=== PATIENT | female | born 1935 | race Caucasian/White ===

== ENCOUNTER → 2017-04-17 | Outpatient (CLI) | payer OTHER, BC ==
[~2017-04-17] VITALS: Ht 165.1 cm; Wt 77.1 kg
[~2017-04-17] MED LIST: AMITRIPTYLINE H10 M3 PO; AMLODIPINE-BEN1 EAC1 PO; ASPIRIN81 M2 PO; CALCIUM 500+D1 EAC2 PO; GLUCOSAMINE &1 EAC1 PO; LABETALOL HCL300 MG PO; LEVOTHYROXINE0.05 MG PO; LOTREL 2.5-101 EACH PO; MOBIC15 MG PO; MULTIVITAMINS PO; POTASSIUM20 PO; SYNTHROID50 MCG PO; TRIAMTERENE-HC1 EAC1 PO; VITAMIN B-6100 MG PO; VITAMIN B-625 MG PO; VITAMIN B122500 MCG PO; ZANTAC 150MG T150 MG PO
--- NOTE | ~2017-04-17 | HPC ---
[facility] [address] [place] [address] PAIN MANAGEMENT CONSULTATION Name: LEANNE ADEN Room #: REG [facility] MSara.#: [id number] Admission: 04/17/17 Attend Phys: Elliot Powers MD Discharge: Date of : 35 Report #: [id number] THIS REPORT FOR: //name// CC: Mich Powers DATE OF SERVICE: 04/17/2017 CHIEF COMPLAINT: Intermittent low back pain with radiation into the legs. 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 This would imply that she is able to stand for prolonged periods of time and she indeed is able to do so, but through over the last year, she has had increasing pain in her low back with radiation down into her legs. After meeting with her today and listening to her stories, I believe that she is really quite stoic and has been putting up with a fair amount of pain. Her pain is worse with walking and if she sits down, her pain almost immediately goes away. Pain is across the low back and she has some tightness in the calf that would be consistent with radiculopathy. She has had a bit of therapy with limited improvement. She is reluctant to take pain medication. MEDICATIONS: Current medicines are amlodipine/benazepril, labetalol, levothyroxine, triamterene/hydrochlorothiazide, vitamins, meloxicam 15 mg once daily. ALLERGIES: None. SOCIAL HISTORY: She is . Denies use of tobacco or alcohol. 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 She has a supportive daughter. She is able to live independently. She drives her own car. PAST MEDICAL HISTORY: Positive for hypertension. She reports that she is scheduled to undergo a stress test. REVIEW OF SYSTEMS: Positive for cataracts, which have been treated surgically. She has frequent urination, nocturia and some mild incontinence. PHYSICAL EXAMINATION: GENERAL: She is a ajit 81-year-old bright, alert. VITAL SIGNS: Her blood pressure is 135/73 and her heart rate is low at 53. She is asymptomatic with the bradycardia. Her BMI is 28.3. [facility] [address] [place] [address] PAIN MANAGEMENT CONSULTATION Name: LEANNE ADEN Room #: REG [facility].#: [id number] Admission: 04/17/17 Attend Phys: Elliot Powers MD Discharge: Date of : 35 Report #: [id number] MUSCULOSKELETAL: She is able to move from sitting to standing position, ambulates through our clinic, complaining of pain at a very low level of 2-3. She reports that longer or more sustained walking would increase her pain. She has improvement with pain flexion at the waist, and extension of the back exacerbates some back pain and tightness in her calves. IMAGING: She has an MRI scan, which shows that she has a grade 1 spondylolisthesis at L4-L5 and L5-S1, which results in neural foraminal stenosis. It should also be noted at L4-L5 there is bilateral intraspinal synovial cyst formation. IMPRESSION: Spondylolisthesis with intraspinal synovial cyst formation. Mild symptomatic neurogenic claudication. RECOMMENDATIONS: She could certainly wait on an epidural injection if she would like. She was sent here for us to discuss that and I gave her that option. There is some likelihood that an epidural injection might provide some symptomatic relief and allow her to be able to be on her feet longer and take some of the symptoms out of her legs when she is standing for such a long period of time at the [employer] work. This would improve her day-to-day function. After discussing potential risks and benefits, we have elected to go ahead and give her a trial of an injection today. If her symptoms worsen, I think that we could certainly continue to use epidural injections if they are effective with the criteria providing substantial and meaningful pain relief for a good duration of response. This would be a much better option for an 81-year-old in providing stronger medication with side effects or surgery. PROCEDURE: Lumbar epidural injection L4-L5 under fluoroscopic guidance. PROCEDURE: She was taken to fluoroscopic suite, placed prone, skin prepped with ChloraPrep over L4-L5 and a 20-gauge Tuohy epidural needle advanced first attempt in the epidural space with loss of resistance. There was no blood or CSF aspirated. 1 mL of Omnipaque was injected with good spread of dye observed in the epidural space, it was followed by 3 mL of 0.5% lidocaine mixed with 40 mg triamcinolone. She tolerated the procedure well. She was observed for about 45 minutes and then discharged. Pain was 0 at discharge and we will see her back only as needed. By: [id number] Elliot Powers MD /nt
[2017-04-17 13:40] VITALS: BP 135/73
== END | disposition home or self-care (01) ==
LOC: PAIN 07:22
DX: M43.16 Spondylolisthesis, lumbar region (principal); M48.06 Spinal stenosis, lumbar region; M71.38 Other bursal cyst, other site; Z98.890 Other specified postprocedural states; I10 Essential (primary) hypertension; Z79.899 Other long term (current) drug therapy; Z87.891 Personal history of nicotine dependence

== ENCOUNTER → 2020-01-16 | Outpatient (CLI) | payer OTHER, BC | LOC: SJCVC 08:56 | PROVIDERS: ATTEND Internal Medicine | DX: I48.91 Unspecified atrial fibrillation (principal); I10 Essential (primary) hypertension; E78.5 Hyperlipidemia, unspecified; E03.8 Other specified hypothyroidism; Z79.899 Other long term (current) drug therapy ==

== ENCOUNTER → 2020-02-18 | Outpatient (CLI) | payer OTHER, BC ==
[~2020-02-18] MED LIST changes: +CORAL CALCIUM1 EAC2 PO; +ELIQUIS5 MG PO; +PACERONE 200 M200 M1 PO
== END ==
LOC: SJCVCIMAG 07:19
PROVIDERS: ATTEND Internal Medicine
DX: I48.92 Unspecified atrial flutter (principal); I48.91 Unspecified atrial fibrillation; I10 Essential (primary) hypertension; E78.5 Hyperlipidemia, unspecified

== ENCOUNTER 2020-02-25 09:29 | Observation (INO) | payer OTHER, BC ==
[2020-02-25] VITALS (14 sets, daily range): BP systolic 109–169; BP diastolic 68–112
[~2020-02-25] VITALS: Ht 160 cm; Wt 66.7 kg
[~2020-02-25 09:29] MED LIST changes: -CORAL CALCIUM1 EAC2 PO; -ELIQUIS5 MG PO; -PACERONE 200 M200 M1 PO
[2020-02-25 10:18] LABS: HEMATOCRIT 42.5 % (37.0-47.0); MCH 26.9 pg (26.0-34.0); MCHC 32.9 g/dL (28.0-37.0); MCV 81.8 fL (80.0-100.0); RBC 5.2 mil/uL (4.20-5.00); RDW 14.6 % (10.5-14.5); WBC 4.5 thou/uL (4.0-11.0)
[2020-02-25 10:24] LABS: CALCIUM 8.7 mg/dL (8.5-10.1); CREATININE 1.1 mg/dL (0.6-1.0); POTASSIUM 3.3 mmol/L (3.5-5.1)
[2020-02-25] MEDS ORDERED: ELIQUIS5 MG PO (10:28)
[2020-02-25] MEDS ORDERED: CORAL CALCIUM1 EAC2 PO (10:31)
--- NOTE | 2020-02-25 17:06 | NUR ---
ASSUMMED PT CARE AT APPROXIMATELY 1245. PT A&O X4. ASSESSMENT CHARTED. FALL PRECAUTIONS IN PLACE. PT DENIES HAVING CHEST PAIN. PT DENIES HAVING SOB. PT DENIES HAVING ACUTE PAIN. PT POST CATH-PROCEDURE. R GROIN C/D/I. NO HEMATOMA. BEDREST COMPLETE. VITAL SIGNS STABLE. PT AMBULATES STEADY C STANDBY. PT COMFORTABLE. PT DENIES HAVING FURTHER CONCERNS.
[2020-02-26] VITALS (9 sets, daily range): BP systolic 123–149; BP diastolic 77–97
[2020-02-26 05:26] LABS: CALCIUM 8.4 mg/dL (8.5-10.1)
[2020-02-26 05:32] LABS: POTASSIUM 2.9 mmol/L (3.5-5.1)
--- NOTE | 2020-02-26 07:29 | NUR ---
SLEPT MOST OF SHIFT. UP WITH STANDBY ASSIST WITH STEADY GAIT. K+ 2.[address]ED AND ORDERS RECIEVED. PROGRESSING TOWARDS AM GOALS FOR CARDIOVERSION. REMAINS ON AMIO GTT AND TELEMETY SHOWS AFLUTTER STILL. CONTINUE TO ASSES.
--- NOTE | 2020-02-26 07:53 | EKG ---
[facility] [place] [address] ELECTROCARDIOGRAM REPORT Name: LEANNE ADEN Room #: 201-[facility] M.R.#: [id number] Admission: 02/25/20 Attend Phys: Darian Silverman Discharge: Date of : 35 Report #: [id number] THIS REPORT FOR: cc: Franklin Whittington MD, Steven E. 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 : 1935 Requested By: Darian Silverman Order Number: [id number] MD: Todd Nick Measurements Intervals [place] Rate: 75 P: UT: QRS: -28 QRSD: 109 T: 6 QT: 437 QTc: 489 Interpretive Statements Atrial fibrillation Possible inferior infarct, old Compared to ECG 04/12/2012 06:33:35 Atrial flutter has replaced sinus bradycardia Electronically Signed On 02-26-2020 7:53:30 CDT by Todd Nick [email or web address] <ELECTRONICALLY SIGNED> By: Todd Nick MD, [facility] 02/26/20 0753 1004 1004 Todd Nick MD, [facility] /EPI
[2020-02-26] MEDS ORDERED: PACERONE 200 M200 M1 PO (16:01)
--- NOTE | 2020-02-26 16:04 | D ---
[facility] [place] [address] DISCHARGE SUMMARY Name: LEANNE ADEN Room #: 201-P [facility] M.R.#: [id number] Admission: 02/25/20 Attend Phys: Darian Silverman Discharge: Date of : 35 Report #: [id number] THIS REPORT FOR: cc: Franklin Whittington MD, Steven E. MD Lammoglia, Francisco J. MD ~ THIS REPORT FOR: //name// CC: Darian Whittington DATE OF SERVICE: 02/26/2020 ADMITTING DIAGNOSES: 1. Symptomatic paroxysmal atrial fibrillation. 2. Abnormal myocardial perfusion scanning. DISCHARGE DIAGNOSES: 1. Paroxysmal symptomatic atrial fibrillation. 2. Mild coronary artery disease. DISCHARGE MEDICATIONS: 1. Home meds. 2. Amiodarone 200 mg p.o. t.i.d. for a week, then q.a.m. daily. FOLLOWUP: Dr. Silverman in 4 weeks. DISCHARGE DIET: Home diet. BRIEF CLINICAL HISTORY: See history and physical in chart. HOSPITAL COURSE: The patient was admitted to the hospital and underwent IV amiodarone infusion after cardiac catheterization yielded no significant high-grade lesions. The patient tolerated medications well, but did not convert. On the day of discharge, she was brought to the cardiac technology lab teacher prep and hold, where she underwent uncomplicated electrical cardioversion. She converted to sinus rhythm. Post-procedure, she was recovered, allowed to ambulate and discharged to home in stable condition with the previously stated discharge instructions and medications. <ELECTRONICALLY SIGNED> By: Darian Silverman MD 02/26/20 1604 1319 1342 Darian Silverman MD /nt
--- NOTE | 2020-02-26 16:04 | P ---
[facility] [place] [address] PROCEDURE REPORT Name: LEANNE ADEN Room #: 201-P [facility] Martine#: [id number] Admission: 02/25/20 Attend Phys: Darian Silverman Discharge: Date of : 35 Report #: [id number] THIS REPORT FOR: cc: Franklin Whittington MD,Franklin Silverman,Darian Palomo MD ~ CC: Darian Whittington DATE OF SERVICE: 02/26/2020 PROCEDURES: 1. Electrical cardioversion. 2. Supervision of conscious sedation. INDICATIONS: An 84-year-old female patient with paroxysmal atrial fibrillation with dizziness and lightheadedness and weakness. BRIEF DESCRIPTION OF PROCEDURE: After informed consent was obtained, the patient was brought to the cardiac catheterization prep and hold. Utilizing 2 mg of Versed and 25 of Demerol IV push, and continuous oximetric and electrocardiographic monitoring, AP paddles were placed on the patient. A synchronized 150 joule biphasic shock was performed that converted to sinus rhythm with occasional PVCs. The patient was then observed with Romazicon and Narcan as an option was given to the nursing staff. The patient tolerated the procedure well. There were no complications. <ELECTRONICALLY SIGNED> By: Darian Silverman MD 02/26/20 1604 1317 1332 Darian Silverman MD /nt
--- NOTE | 2020-02-26 21:03 | NUR ---
ASSUMMED PT CARE AT APPROXIMATELY 0700. PT A&O X4. ASSESSMENT CHARTED. FALL PRECAUTIONS IN PLACE. PT DENIES HAVING CHEST PAIN. PT DENIES HAVING SOB. PT DENIES HAVING ACUTE PAIN. PT HAD CARDIOVERSION PROCEDURE TODAY. PT IN SINUS RHYTHM. R GROIN C/D/I. NO HEMATOMA. VITAL SIGNS STABLE. PT DISCHARGING HOME C SELF CARE. PT RECEIVED DISCHARGE EDUCATION. PT STATED UNDERSTANDING AND DENIED HAVING FURTHER CONCERNS. PT RECEIVED MEDICAL TRANSPORT OFF UNIT. IV'S DC. TELE DC. PT AMBULATES STEADY.
--- NOTE | 2020-02-28 12:25 | CATHLAB ---
[facility] [place] [address] INVASIVE PROCEDURE REPORT Name: LEANNE ADEN Room #: 201-P [facility] Alek Farley#: [id number] Admission: 02/25/20 Attend Phys: Darian Silverman Discharge: 02/26/20 Date of : 35 Report #: [id number] THIS REPORT FOR: cc: Franklin Whittington MD, Steven E. MD Lammoglia, Francisco J. MD ~ APPROVED REPORT Study performed: 02/25/2020 10:45:18 Patient Details Patient Status: Out-Patient Room #: The patient is a 84 year-old female Event Personnel Darian Silverman Director Of Revenue, Delmi Green RTR Monitor, Antonieta Estevez RTR, Micaela Workman Ashley RN order manager Performed Art Access - R femoral artery* Left Heart Cath w/or w/o Coronaries [id number] [facility] [address] Initial Mod Sed Same Phys/QHP Gr 398755 99846 Mod Sed Same Phys/QHP Ea [id number] Hemostasis with Manual pressure, supervision of conscious sedation Indication Arrhythmia, Positive stress test Procedure Narrative The Right Groin^ was infiltrated with 1% Lidocaine subcutaneous anesthesia. A PINNACLE 4FR Sheath #[id number] sheath was inserted into the RFA^. Coronary angiography was performed using coronary diagnostic catheters. The right coronary system was accessed and visualized with a JL5 catheter. The left coronary system was accessed and visualized with a JR4 catheter. The left ventricle was accessed and visualized with a PIGTAIL catheter. Hemostasis was obtained with manual pressure following sheath removal without any complications. The patient tolerated the procedure well and there were no complications associated with the procedure. There was no hematoma. Intraoperative Conscious Sedation Sedation start time: 11:36 Case end Time: 12:11 [facility] [place] [address] INVASIVE PROCEDURE REPORT Name: LEANNE ADEN Room #: 201-P [facility] [place] ..#: [id number] Admission: 02/25/20 Attend Phys: Darian Duran Discharge: 02/26/20 Date of : 35 Report #: [id number] Versed 2 mg Fluoro Time: 3.40 minutes Dose: DAP 6049.40 cGycm2 989 mGy Contrast Type and Amount: Omnipaque 65 ml Coronary Angiography The patient's coronary anatomy is right dominant. Diagnostic Cath Left Main Normal origin and large caliber bifurcates left into descending left circumflex. Is quite long in length and is free of high-grade lesions. LAD Moderate to large caliber vessel coursing on the anterior interventricular sulcus and in his distal half tapers rapidly after bifurcating to a diagonal branch and a continuation of the LAD. At this point in time there appears to be a hairpin like band that does not slow antegrade flow. There is mild irregularities otherwise of approximately 30% in the proximal half of the LAD. Gives rise to septal diagonal branches in its course. Diagonal 1 Moderate caliber vessel coursing on the antral lateral wall with only luminal irregularities noted Diagonal 2 Diminutive insignificant caliber vessel coursing on the anterolateral aspect of the left ventricle without high-grade lesion Circumflex Moderate caliber vessel which courses in the AV groove posteriorly giving rise moderate caliber marginal branch coursing along the lateral aspect of the heart. And continues on a short way and gives rise to a second marginal branch and terminates as a posterior wall branch supplying the posterior aspect of the atrial chambers. There is luminal irregularities of less than 30% noted at numerous points throughout its course OM1 Moderate caliber vessel with luminal irregularities noted in its proximal third to half. No flow-limiting lesions are present as it courses towards the apex on the lateral aspect of the left ventricle. OM2 Small caliber vessel with luminal irregularities present proceeding towards the apex without high-grade lesion Right Coronary Large-caliber almost ectatic vessel normal origin. It courses in the AV groove to the acute angle where it gives rise atrial and right ventricular branches which are diminutive in size. The vessel continues to the crux of the heart gives rise to posterior descending artery that appears to have moderate long segment of lesion in its proximal third and then reconstitutes continue towards the apex and the posterior interventricular sulcus the distal right coronary consists of a moderate to large caliber coursing on the [facility] [address] [place] [address] INVASIVE PROCEDURE REPORT Name: LEANNE ADEN Room #: 201-P [facility] [place] M.RSara#: [id number] Admission: 02/25/20 Attend Phys: Darian Duran Discharge: 02/26/20 Date of : 35 Report #: [id number] lateral aspect of the heart terminating is a tortuous vessel near the apex with only mild to moderate irregularities present in the distal portion of the vas R PDA Moderate caliber vessel with proximal mild to moderate long lesion presented and continues on without high-grade stenosis Left Ventriculography Left Ventriculography was not performed. Hemodynamics The aortic pressure is 155/87 mmHg with a mean of 110 mmHg. The left ventricular pressure is 143/22 mmHg with a mean of mmHg. The left ventricular end diastolic pressure is 30 mmHg. Conclusion 1. Coronary disease mild to moderate involving the 3 epicardial coronary arteries 2. Normal hemodynamics Recommendations Cardiac Risk Reduction Program Medical Therapy <ELECTRONICALLY SIGNED> By: Darian Silverman MD 02/28/20 1225 1225 1225 Darian Silverman MD /INF
== END 2020-02-26 19:00 | disposition home or self-care (01) ==
LOC: CATH 09:29 → 2N 12:36
PROVIDERS: ADMIT Internal Medicine; ATTEND Internal Medicine
DX: I48.0 Paroxysmal atrial fibrillation (principal); I25.10 Atherosclerotic heart disease of native coronary artery without angina pectoris; I10 Essential (primary) hypertension; E78.5 Hyperlipidemia, unspecified; E03.9 Hypothyroidism, unspecified; E87.6 Hypokalemia; Z79.899 Other long term (current) drug therapy; Z79.82 Long term (current) use of aspirin

== ENCOUNTER → 2020-04-22 | Outpatient (CLI) | payer OTHER, BC ==
[~2020-04-22] MED LIST changes: +CORAL CALCIUM1 EAC2 PO; +ELIQUIS5 MG PO; +PACERONE 200 M200 M1 PO
== END ==
LOC: SJCVC 10:03
PROVIDERS: ATTEND Internal Medicine
DX: R94.31 Abnormal electrocardiogram [ECG] [EKG] (principal); I48.0 Paroxysmal atrial fibrillation; I10 Essential (primary) hypertension; E78.5 Hyperlipidemia, unspecified; I48.92 Unspecified atrial flutter; I44.30 Unspecified atrioventricular block; Z79.899 Other long term (current) drug therapy

== ENCOUNTER → 2020-05-25 | Outpatient (CLI) | payer OTHER, BC | LOC: SJCVC 11:59 | PROVIDERS: ATTEND Internal Medicine | DX: I48.0 Paroxysmal atrial fibrillation (principal); I25.10 Atherosclerotic heart disease of native coronary artery without angina pectoris; I10 Essential (primary) hypertension; Z79.899 Other long term (current) drug therapy ==

== ENCOUNTER → 2020-10-20 | Outpatient (CLI) | payer OTHER, BC | LOC: SJCVC 09:59 | PROVIDERS: ATTEND Internal Medicine | DX: I48.0 Paroxysmal atrial fibrillation (principal); I10 Essential (primary) hypertension; E78.5 Hyperlipidemia, unspecified; R20.0 Anesthesia of skin; E03.9 Hypothyroidism, unspecified; I48.92 Unspecified atrial flutter; Z79.899 Other long term (current) drug therapy; Z88.8 Allergy status to other drugs, medicaments and biological substances ==

== ENCOUNTER → 2020-11-09 | Outpatient (CLI) | payer OTHER, BC | LOC: SJCVCIMAG 07:40 | PROVIDERS: ATTEND Internal Medicine | DX: I08.3 Combined rheumatic disorders of mitral, aortic and tricuspid valves (principal); I11.9 Hypertensive heart disease without heart failure; E78.5 Hyperlipidemia, unspecified; I48.0 Paroxysmal atrial fibrillation; Z79.899 Other long term (current) drug therapy ==